=== PATIENT | male | born 1955 | race Caucasian/White ===

== ENCOUNTER 2021-09-05 21:01 | Emergency (ER) | payer OTHER ==
[2021-09-05] MEDS ORDERED: Ketorolac Tromethamine 30 MG/ML VIAL ONE (22:04)
[2021-09-05 22:09] LABS: #Basophils 0.1 10x3/uL (0.0-0.2); #Eosinphils 0.5 10x3/uL (0.0-0.5); #Monocytes 0.9 10x3/uL (0.0-1.1); #Neutrophils 4.1 10x3/uL (1.5-8.4); %Basophils 1.4 % (0.0-2.0); %Eosinophils 6.3 % (0.0-6.0); %Lymphocytes 28.1 % (18.0-47.0); %Neutrophils 52.7 % (40.0-75.0); Hemoglobin 14.1 g/dL (13.5-17.5); Mean Corpuscular HGB CONC 32.6 g/dL (32.0-36.0); Mean Corpuscular Hemoglobin 28.2 pg (27.0-33.0); Mean Corpuscular Volume 86.4 fl (81.2-95.1); Mean Platelet Volume 11.6 fl (7.4-10.4); Platelet Count 219 10x3/uL (150-450); RBC Distribution Width 13.4 % (11.5-14.5); White Blood Cell (WBC) Count 7.8 10x3/uL (3.5-10.5)
[2021-09-05 22:20] LABS: ALT (SGPT) 20 U/L (8-55); AST (SGOT) 22 U/L (5-34); Albumin 3.9 g/dL (3.4-4.8); Alkaline Phosphatase 66 U/L (40-110); Anion Gap 13 mmol/L (10-20); BUN (Urea Nitrogen) 13 mg/dL (8.4-25.7); Bilirubin, Total 0.2 mg/dL (0.2-1.2); Calc. Creatinine Clearance 0 mL/min (70-130); Calcium 8.9 mg/dL (7.8-10.44); Carbon Dioxide 21 mmol/L (23-31); Chloride 107 mmol/L (98-107); Globulin 3.5 g/dL (2.4-3.5); Glucose 102 mg/dL (80-115); Potassium 4.1 mmol/L (3.5-5.1); Protein, Total 7.4 g/dL (5.8-8.1); Sodium 137 mmol/L (136-145)
[2021-09-05] MEDS ORDERED: Boostrix 0.5 ML (Tdap) VIAL ONE (23:27)
[2021-09-05 23:43] LABS: SARS-CoV-2 NAA Rapid Test Not Detected (NotDetected)
== END 2021-09-06 08:43 ==
LOC: CSHERS 21:01
DX: L03.115 Cellulitis of right lower limb (principal); I10 Essential (primary) hypertension; E78.5 Hyperlipidemia, unspecified; Z79.899 Other long term (current) drug therapy
CPT/HCPCS: 80053; 85025; 90471; 90715; 96365; 96366; 96367; 96375; J1885; J3370; J3490; U0002

== ENCOUNTER 2022-04-28 20:33 | Emergency (ER) | payer OTHER ==
[2022-04-28 21:38] LABS: #Basophils 0.1 10x3/uL (0.0-0.2); #Eosinphils 0.5 10x3/uL (0.0-0.5); #Monocytes 1.2 10x3/uL (0.0-1.1); #Neutrophils 7.6 10x3/uL (1.5-8.4); %Basophils 0.9 % (0.0-2.0); %Eosinophils 4.4 % (0.0-6.0); %Lymphocytes 18.9 % (18.0-47.0); %Monocytes 10.3 % (0.0-10.0); %Neutrophils 65.2 % (40.0-75.0); ALT (SGPT) 12 U/L (8-55); AST (SGOT) 15 U/L (5-34); Albumin 4.1 g/dL (3.4-4.8); Alkaline Phosphatase 83 U/L (40-110); Anion Gap 14 mmol/L (10-20); BUN (Urea Nitrogen) 10 mg/dL (8.4-25.7); Bilirubin, Total 0.7 mg/dL (0.2-1.2); Calc. Creatinine Clearance 0 mL/min (70-130); Calcium 9.4 mg/dL (7.8-10.44); Carbon Dioxide 23 mmol/L (23-31); Chloride 105 mmol/L (98-107); Estimated GFR 97; Globulin 3.8 g/dL (2.4-3.5); Glucose 102 mg/dL (80-115); Hemoglobin 14.6 g/dL (13.5-17.5); Mean Corpuscular HGB CONC 34.2 g/dL (32.0-36.0); Mean Corpuscular Volume 84.9 fl (81.2-95.1); Platelet Count 193 10x3/uL (150-450); Potassium 3.6 mmol/L (3.5-5.1); Protein, Total 7.9 g/dL (5.8-8.1); RBC Distribution Width 13.6 % (11.5-14.5); Red Blood Cell (RBC) Count 5.03 10x6/uL (4.32-5.72); Sodium 138 mmol/L (136-145); White Blood Cell (WBC) Count 11.6 10x3/uL (3.5-10.5)
[2022-04-28 23:07] LABS: SARS-CoV-2 NAA Rapid Test Not Detected (NotDetected)
[2022-04-28] MEDS ORDERED: Clindamycin/D5W 900 MG in Premix Bag 1 BAG IVPB SCH (23:15)
[2022-04-28] MEDS ORDERED: Cefepime 2 GM VIAL ONE (23:16)
[2022-04-28] MEDS ORDERED: VANCOMYCIN 2 GRAM/400 ML BAG 2 GM in Premix Bag 1 BAG IVPB SCH (23:30)
== END 2022-04-29 03:00 | disposition short-term general hospital (02) ==
LOC: CSHERS 20:33
DX: L03.011 Cellulitis of right finger (principal); E78.5 Hyperlipidemia, unspecified; I10 Essential (primary) hypertension; K21.9 Gastro-esophageal reflux disease without esophagitis; Z20.822 Contact with and (suspected) exposure to COVID-19
CPT/HCPCS: 36415; 80053; 85025; 87040; 87070; 87205; 96365; 96367; 96375; J0692; J3370; J3490; U0002